=== PATIENT | male | born 1990 | race American Indian/Alaskan Native ===

== ENCOUNTER 2021-06-25 20:19 | Emergency (ER) | payer OTHER ==
[2021-06-25] MEDS ORDERED: IBUPROFEN 800 MG TAB PO ONE (22:09)
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
[2021-06-25 23:01] VITALS: BP 121/74
== END 2021-06-25 22:40 | disposition home or self-care (01) ==
LOC: ED 20:19
DX: M54.2 Cervicalgia (principal); V89.2XXA Person injured in unspecified motor-vehicle accident, traffic, initial encounter; Y93.89 Activity, other specified; Y92.89 Other specified places as the place of occurrence of the external cause; Y99.8 Other external cause status
CPT/HCPCS: 99282